=== PATIENT | female | born 1985 | race Caucasian/White ===

== ENCOUNTER 2017-08-22 12:11 | Emergency (ER) | payer OTHER ==
[2017-08-22 12:17] VITALS: RESP 16; TEMP 98.1
--- NOTE | 2017-08-22 13:13 | EDPHY ---
HPI/HX/ROS/PE/MDM Narrative: CHIEF COMPLAINT: Low back pain HPI: This patient is a 32 year old female complaining of lower back pain. She has history of sciatic back pain which she generally manages with holistic treatments including acupuncture and stretching. She felt her usual back pain flare up earlier this week, but began to feel better yesterday evening. She attended a yoga class this morning and her pain worsened, but she completed the class. By the end, she had unbearable pain in her right lumbar region. This radiates down her right leg along the lateral aspect. It is similar to her past sciatic pain, but more severe. She denies any numbness or weakness in her leg. No abdominal pain. The patient was evaluated several times in her early 20s for this condition and has had x-rays and MRIs in the past and diagnoses including scoliosis, trauma from horseback riding, and fibromyalgia. She generally does well managing her discomfort without medications, and symptoms usually resolve in several days, but her current discomfort has lasted longer than this. She denies any recent trauma. No fever, incontinence, difficulty walking, or other associated symptoms. REVIEW OF SYSTEMS: Aside from elements discussed in the HPI, a comprehensive 10-point review of systems was reviewed and is negative. PMH: Celiac disease. 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 PHYSICAL EXAM: General:Patient is alert, in no acute distress. ENT:Eyes are normal to inspection. ENT inspection normal. Neck: Normal inspection. Full range of motion. Respiratory:No respiratory distress. Breath sounds normal bilaterally. Cardiovascular: Regular rate and rhythm. Strong peripheral pulses. Normal cap refill. Abdomen:The abdomen is nontender to palpation. There are no peritoneal signs. There are normal bowel sounds. Back: Tenderness to right sciatic notch, no CVA or midline tenderness. 5/5 DF/ PF in bilateral lower extremities. Skin: Normal color. No rash. Warm and dry. Extremities: Normal appearance. Full range of motion. Neuro: Oriented x3. Normal motor function. Normal sensory function. ED Course: This 32 year old female presents with right-sided lumbar back pain radiating down her right leg. This feels similar to prior sciatic pain and she has had x- ray and MRI studies in the past. Plan for UA to r/o UTI or kidney stone. Plan to administer 60mg IM Toradol and PO Percocet 5/325 for pain relief. UA largely remarkable, 1+ blood present. Discussed these results with the patient, and she states she is starting her menstrual period. I have little clinical concern for kidney stone at this time. 14:50 Reassessed patient. She is comfortable with discharge home. Discussed pain management including antiinflammatories and muscle relaxants. She requests a medication other than Flexeril. Prescriptions given for Toradol, Percocet, Medrol Dosepak, and Skelaxin. Follow up and return precautions discussed. Referrals to primary care provider and charge master specialist given. MDM: This is a young healthy patient who complains of low back pain that she describes as an exacerbation of her chronic back pain. We discussed imaging, but given similarity of pain to chronic and reassuring exam that is consistent with sciatic back pain, she agrees with plan for symptomatic treatment and referral to outpatient NSG for definitive diagnosis and definitive treatment. We discussed strict return precautions. - Data Points Laboratory Results: 08/22/17 14:00 Urine Color YELLOW Urine Appearance HAZY Urine pH 5.0 (5.0-7.5) Ur Specific Rhame 1.016 (1.002-1.030) Urine Protein NEGATIVE (NEGATIVE) Urine Ketones TRACE H (NEGATIVE) Urine Blood 1+ H (NEGATIVE) Urine Nitrate NEGATIVE (NEGATIVE) Urine Bilirubin NEGATIVE (NEGATIVE) Urine Urobilinogen NEGATIVE EU EU (0.2-1.0) Ur Leukocyte Esterase TRACE H (NEGATIVE) Urine RBC 1-3 /hpf /hpf (0-3) Urine WBC 1-3 /hpf /hpf (0-3) Ur Epithelial Cells 2+ /lpf H /lpf (NONE-1+) Urine Mucus TRACE /lpf /lpf (NONE-1+) Urine Glucose NEGATIVE (NEGATIVE) Medications Given: Discontinued Medications Ketorolac Tromethamine (Toradol) 60 mg IM EDNOW ONE Stop: 08/22/17 13:26 Last Admin: 08/22/17 14:05 Dose: 60 mg Oxycodone/Acetaminophen (Percocet 5/325) 1 tab PO EDNOW ONE Stop: 08/22/17 13:26 Last Admin: 08/22/17 14:07 Dose: 1 tab General Time Seen by Provider: 08/22/17 12:43 Initial Vital Signs: Initial Vital Signs Temperature (C) 36.7 C 08/22/17 12:14 Heart Rate 71 02/16/18 12:14 Respiratory Rate 16 08/22/17 12:14 Blood Pressure 134/96 H 08/22/17 12:14 O2 Sat (%) 97 08/22/17 12:14 O2 Delivery Mode Room Air Allergies/Adverse Reactions: No Known Allergies Allergy (Unverified 08/22/17 12:14) Home Medications: Medication Instructions Recorded Ketorolac Tromethamine 10 mg PO Q6H #16 tab 08/22/17 Metaxalone [Skelaxin 800 mg (*)] 800 mg PO TID PRN #12 tab 08/22/17 methylPREDNISolone [Medrol Dose 1 each PO AD #1 ea 08/22/17 Cruz] oxyCODONE/APAP 5/325 [Percocet 1 - 2 tab PO Q4H PRN #7 tab 08/22/17 5/325 (*)] Departure - Departure Disposition: Home, Routine, Self-Care Clinical Impression: Back pain of lumbar region with sciatica Condition: Good Instructions: Acute Low Back Pain (ED) Additional Instructions: Follow up with a charge master specialist within one week. We have given you a referral to a local primary care physician as well. Take Toradol as prescribed for pain and antiinflammatory effects. You may take Percocet as prescribed as needed for severe pain. Take Medrol Dosepak as prescribed. Take Skelaxin as prescribed. Try using a heating pad. Return to the emergency department for severe pain, fever, numbness, difficulty walking, change in location or nature of pain or other concerns. Referrals: [facility] [Outside] - As per Instructions Maria De Jesus Saldana MD [Medical Doctor] - As per Instructions Ari Mancia MD [Medical Doctor] - As per Instructions Prescriptions: Ketorolac Tromethamine 10 mg PO Q6H #16 tab Metaxalone [Skelaxin 800 mg (*)] 800 mg PO TID PRN #12 tab PRN Reason: Spasms methylPREDNISolone [Medrol Dose Cruz] 1 each PO AD #1 ea oxyCODONE/APAP 5/325 [Percocet 5/325 (*)] 1 - 2 tab PO Q4H PRN #7 tab PRN Reason: Pain, Severe Report Scribed for: Yeyo Kaur Report Scribed by: Suad Raza Date of Report: 08/22/17 Time of Report: 13:36 Physician Review and Approval Statement: Portions of this note were transcribed by an ED scribe. I personally performed the history, physical exam, and medical decision making; and confirm the accuracy of the information in the transcribed note.
[2017-08-22] MEDS ORDERED: OXYCODONE/APAP 5/325 TAB PO ONE (13:25)
[2017-08-22] MEDS ORDERED: KETOROLAC 30 MG/1 ML SDV IM ONE (13:25)
[2017-08-22] MEDS ORDERED: METAXALONE 800 MG TAB PO ONE (15:03)
[2017-08-22 15:37] VITALS: BP 118/79; PULSE 88; O2SAT 96
== END 2017-08-22 15:39 | disposition home or self-care (01) ==
DX: M54.41 Lumbago with sciatica, right side (principal)
CPT/HCPCS: J1885